=== PATIENT | male | born 1985 | race African-American/Black ===

== ENCOUNTER 2019-08-06 08:09 | Observation (INO) ==
[2019-08-06] MEDS ORDERED: ASPIRIN PO ONE (08:21)
[2019-08-06] MEDS ORDERED: ZOFRAN IV ONE (08:34)
[2019-08-06 08:41] LABS: BASO# 0.03 X1000 (0.0-0.2); BASO% 0.3 % (0.0-0.8); EOS# 0.01 X1000 (0.0-0.7); EOS% 0.1 % (0.0-10.0); HEMATOCRIT 46.1 % (42.0-52.0); HEMOGLOBIN 15.4 g/dL (14.0-18.0); IMM GRAN# 0.03 X1000 (0.0-0.04); IMM GRAN% 0.3 % (0.0-0.5); LYMPH# 2.02 X1000 (1.2-3.4); LYMPH% 18.2 % (20.5-51.1); MCH 27.7 PG (27-31); MCHC 33.4 g/dL (33-37); MCV 82.9 FL (81-99); MONO# 0.54 X1000 (0.11-0.59); MONO% 4.9 % (1.7-9.3); MPV 9.9 FL (7.4-10.4); NEUT# 8.48 X1000 (1.4-6.5); NEUT% 76.2 % (42.2-75.2); PLT 404 X1000 (130-400); RBC 5.56 XMIL (4.7-6.1); RDW 13.8 % (11.5-14.5); WBC 11.11 X1000 (4.8-10.8)
--- NOTE | 2019-08-06 09:00 | Diag Imaging Result Doc PS360 ---
CHEST-2 VIEWS - 08/06/2019 INDICATION: sob COMPARISON: 10/03/2017 FINDINGS: Stable scarring at the left lateral costophrenic angle. The lungs are clear. Heart size is normal. No pneumothorax or pleural effusion. IMPRESSION: Negative exam. Electronically signed by Xander Smith 08/06/2019 8:57 AM
[2019-08-06 09:01] LABS: AGAP 18; ALBUMIN 4.5 g/dL (3.5-5.0); ALKALINE PHOSPHATASE 116 U/L (32-122); BUN 11 mg/dL (8-22); CALCIUM 9.9 mg/dL (8.8-10.2); CHLORIDE 97 mmol/L (98-107); CK PROFILE 111 U/L (24-204); COSMO 282; CREATININE 0.8 mg/dL (0.7-1.2); ESTIMATED GFR > 60; GLUCOSE 318 mg/dL (70-104); GOT 25 U/L (10-34); GPT 46 U/L (10-44); POTASSIUM 4.3 mmol/L (3.5-5.1); SODIUM 135 mmol/L (136-145); TCO2 20 mmol/L (25-35)
[2019-08-06 09:02] LABS: INR 0.98; PROTIME 13.5 Seconds (11.0-16.0)
[2019-08-06 09:03] LABS: PTT 26.2 Seconds (22.3-41.8)
[2019-08-06 09:04] LABS: URINE SOURCE CLEAN CATCH
[2019-08-06] MEDS ORDERED: APRESOLINE IV ONE (09:09)
[2019-08-06 09:16] LABS: BILIRUBIN URINE NEGATIVE (NEGATIVE); BLOOD URINE NEGATIVE (NEGATIVE); COLOR YELLOW; GLUCOSE URINE >1000 mg/dL (NEGATIVE); KETONE URINE 60 mg/dL (NEGATIVE); LEUKOCYTES URINE NEGATIVE (NEGATIVE); NITRITE URINE NEGATIVE (NEGATIVE); PROTEIN URINE TRACE mg/dL (NEGATIVE); SP GRAVITY URINE 1.032; TURBIDITY URINE CLEAR (CLEAR); UROBILINOGEN URINE NORMAL (NORMAL)
--- NOTE | 2019-08-06 09:16 | EKG Report ---
Test Performed on : 08/06/2019 08:26:26 AM Test Reason : sob Blood Pressure : / mmHG Vent. Rate : 097 BPM Atrial Rate : 097 BPM P-R Int : 160 ms QRS Dur : 082 ms QT Int : 344 ms P-R-T Axes : 037 070 007 degrees QTc Int : 436 ms Normal sinus rhythm. Normal ECG When compared with ECG of 27-JUL-2017 20:06, Nonspecific T wave abnormality no longer evident in Anterior leads Unconfirmed Result
[2019-08-06 09:17] LABS: UR EPITHELIAL CELLS <10 /HPF (<10); URINE BACTERIA NEGATIVE /HPF; URINE RBC <10 /HPF (<10); URINE WBC <10 /HPF (<10)
--- NOTE | 2019-08-06 09:26 | PROVIDER DOCUMENTATION ---
HPI-Abdominal Pain/GI Problem - General Chief Complaint: Abdominal Pain Stated Complaint: ABD PAIN Time Seen by Provider: 08/06/19 08:12 Source: patient Allergies/Adverse Reactions: Patient Allergies Allergy/AdvReac Type Severity Reaction Status Date / Time No Known Allergies Allergy Verified 07/27/17 17:42 Home Medications: Home Medication List Medication Instructions Recorded Confirmed Last Taken Type Metoprolol Dawson/Hydrochlorothiaz 1 each PO DAILY #30 tab.er.24h 04/11/17 05/30/17 Unknown Rx [Dutoprol 50-12.5 mg Tablet] Clonazepam [Klonopin] 1 mg PO HS #10 tab.rapdis 05/30/17 Unknown Rx Sulfamethoxazole/Tmp D.s. [Septra 1 ea PO BID #20 tab 06/15/17 Unknown Rx Ds] Promethazine [Phenergan] 25 mg PO Q6H PRN PRN #10 tab 07/27/17 Unknown Rx Acetaminophen [Tylenol] 650 mg PO Q6H PRN PRN tablet 10/05/17 Unknown Rx Losartan [Cozaar] 100 mg PO DAILY #30 tab 10/05/17 Unknown Rx Metformin [Glucophage] 500 mg PO BID #60 tab 10/05/17 Unknown Rx Metoclopramide [Reglan] 5 mg PO TID AC #90 tab 10/05/17 Unknown Rx Ondansetron Odt [Zofran Odt] 8 mg PO Q8H PRN PRN #45 tab 10/05/17 Unknown Rx Pantoprazole Sodium [Protonix] 40 mg PO DAILY #30 tablet.dr 10/05/17 Unknown Rx Sitagliptin [Januvia] 100 mg PO DAILY #30 tab 10/05/17 Unknown Rx Sulfamethoxazole/Trimethoprim 1 ea PO BID #20 tab 11/13/17 Unknown Rx [Bactrim Ds Tablet] - History of Present Illness-ABD Nature of Presenting Problems: 33 YOM with PMH of DM, gastroparesis, HTN presents with c/o generalized upper abdominal pain, n/v/d x 2 days. Denies Fever, chills, SOB, CP. He is diaphoretic on exam in NAD. Abdominal Pain Onset Location: reports: RUQ, LUQ Pain Radiation: reports: no radiation Quality of Pain: reports: aching, cramping, fullness Severity in ED: reports: moderate Onset/Duration: reports: 2 days ago Timing: reports: still present Activities at Onset: reports: none Exposure to sick contacts?: No Associated Symptoms: reports: diarrhea, nausea, vomiting Last BM: 24 hours ago Dark Stools Present?: reports: none noticed Rectal Bleeding: reports: none Rectal Pain: reports: none # of Vomiting Episodes: 6 Bruising or Bleeding Gums?: No Similar Symptoms Previously?: No Recently seen or treated by another doctor?: No Review of Systems - Adult - REVIEW OF SYSTEMS - ADULT Constitutional: reports: no symptoms reported. denies: see HPI, chills, fever, fatique, night sweats, weight gain, weight loss, other Eyes: reports: no symptoms reported. denies: see HPI, discharge, dry eyes, decreased vision, blurred vision, double vision, eye pain, redness, other Ears, Nose, Mouth & Throat: reports: no symptoms reported. denies: see HPI, ear discharge, ear pain, hearing loss, tinnitus, epistaxis, sinus problem, nose pain, loose teeth, mouth/dental pain, mouth swelling, hoarseness, throat pain, throat swelling, other Cardiovascular: reports: no symptoms reported. denies: see HPI, chest pain, edema, heart murmur, irregular heart rate, orthopnea, palpitations, poor circul ation, PND, syncope, other Respiratory: reports: no symptoms reported. denies: see HPI, chronic cough, cough, dyspnea on exertion, excessive sputum production, hemoptysis, pleurisy, shortness of breath, wheezing, other Gastrointestinal: reports: see HPI, abdominal pain, diarrhea, nausea, vomiting. denies: no symptoms reported, hematemesis, constipation, difficulty swallowing, frequent heartburn, poor appetite, rectal bleeding, other Genitourinary: reports: no symptoms reported. denies: see HPI, dysuria, discharge, frequency, flank pain, frequent UTI's, hematuria, hesitency, incontinence, urinary retention, urgency, other Musculoskeletal: reports: no symptoms reported. denies: see HPI, bone pain, back pain, frequent leg cramps, joint pain, joint swelling, muscle aches, muscle weakness, neck pain, other Integumentary: reports: no symptoms reported. denies: see HPI, hives, hair loss, itching, mole changes, nail changes, rash, skin sores/ulcer, skin thickening, other Neurological: reports: no symptoms reported. denies: see HPI, ataxia, dizziness/vertigo, headache/migraines, loss of balance, numbness, paresthesia, seizure, slurred speech, syncope, tremors, other Psychiatric: reports: no symptoms reported. denies: see HPI, anxiety, anti- depressant use, alcohol/drug dependence, depression, emotional problems, insomnia, panic attacks, suicidal thoughts, other Endocrine: reports: no symptoms reported. denies: see HPI, change in skin pigment, excessive sweating, goiter, cold intolerance, heat intolerance, increased hunger, increased thirst, polyuria, other Hematologic/Lymphatic: reports: no symptoms reported. denies: see HPI, blood clots, easy bruising, low blood count, lymphedema, prolonged bleeding, swollen lymph nodes, transfusions, other Allergic/Immunologic: reports: no symptoms reported. denies: see HPI, allergic reactions, allergic rhinitis, asthma, eczema, food allergy, frequent infections, hay fever, hives, positive PPD, urticaria, other Past History - Adult - PAST MEDICAL HISTORY-ADULT Review of Records: reports: Nursing Assessment Review, Social history reviewed & non-contributory. Major Childhood Illnesses: reports: denies history Cardiovascular: reports: HTN Respiratory: reports: pneumonia Gastrointestinal: reports: GERD, other (H pylori, gastroparesis, cyclical vomiting) Genitourinary: reports: other (decreased urination) Musculoskeletal: reports: denies history Neurological: reports: denies history Endocrine/Immune: reports: Diabetes - PRIOR SURGERIES/PROCEDURES Surgical/Procedure History: reports: none - IMMUNIZATION STATUS Childhood Immunizations: See Nurse Assessment Flu Vaccine: See Nurse Assessment - FAMILY HISTORY Family History: reviewed, not pertinent Physical Exam-General - PHYSICAL EXAM-ADULT Initial Vital Signs Reviewed: Yes - CONSTITUTIONAL General Appearance: alert, no apparent distress - EYES Eyes: PERRL/EOMI, pink conjunctivae - HEAD, EARS, NOSE, MOUTH & THROAT HENMT: normocephalic/atraumatic, moist mucous membranes, normal ENT inspection - NECK Neck: non-tender, full range of motion, supple - RESPIRATORY Respiratory: chest non-tender, no pleuratic chest pain, no respiratory distress, no accessory muscle use, wheezing - CARDIOVASCULAR Cardiovascular: normal peripheral pulses, regular rate, rhythm, no edema, no gallop - GASTROINTESTINAL (ABDOMEN) Abdominal Exam: soft, tenderness, other (obese) - LYMPHATIC Lymphatic: no adenopathy - MUSCULOSKELETAL Back Exam: normal inspection, no CVA tenderness, no vertebral tenderness Extremity: normal range of motion, non-tender, normal gait Peripheral Pulses: radial (R): 2+, radial (L): 2+ - SKIN Integumentary: normal color, normal turgor, warm/dry - NEUROLOGIC Neurologic: grossly normal - PSYCHIATRIC Psych/Mental Status: normal mood/affect, oriented x 3 Progress - PLAN OF CARE/RESULTS Progress/Plan/Lab Results: Vital Signs - 8 hr 08/06/19 08:13 08/06/19 08:36 Temperature 98 F Pulse Rate 89 104 H Respiratory Rate 22 25 H Blood Pressure 188/119 160/103 O2 Sat by Pulse Oximetry 98 95 Laboratory Results - last 24 hr 08/06/19 08/06/19 08/06/19 08:30 08:30 08:30 WBC RBC Hgb Hct MCV MCH MCHC RDW Std Deviation Plt Count MPV Immature Gran % (Auto) Neut % (Auto) Lymph % (Auto) [place] % (Auto) Eos % (Auto) Baso % (Auto) Immature Gran # (Auto) Neut # (Auto) Lymph # (Auto) Crawford # (Auto) Eos # (Auto) Baso # (Auto) PT INR PTT (Actin FS) Sodium 135 L Potassium 4.3 Chloride 97 L Carbon Dioxide 20 L Anion Gap 18 BUN 11 Creatinine 0.8 Estimated GFR/1.73 m2 > 60 BUN/Creatinine Ratio 14 Glucose 318 H POC Glucose Calculated Osmolality 282 Calcium 9.9 Total Bilirubin 0.50 AST 25 ALT 46 H Alkaline Phosphatase 116 Creatine Kinase 111 Troponin T High Sens < 6 Uck-F-Pvrxvjbvmov Pept 14 Total Protein 8.0 Albumin 4.5 Globulin 4.0 Albumin/Globulin Ratio 1.0 Plasma Lactate Urine Source Urine Color Urine Turbidity Urine pH Ur Specific [place] Urine Protein Ur Glucose (Stick) Ur Ketones (Stick) Urine Blood Urine Nitrite Urine Bilirubin Urobilinogen Dipstick Urine Leukocytes Urine WBC (Auto) Urine RBC (Auto) U Epithel Cells (Auto) Urine Bacteria (Auto) 08/06/19 08/06/19 08/06/19 08:30 08:30 08:30 WBC 11.11 H RBC 5.56 Hgb 15.4 Hct 46.1 MCV 82.9 MCH 27.7 MCHC 33.4 RDW Std Deviation 13.8 Plt Count 404 H MPV 9.9 Immature Gran % (Auto) 0.3 Neut % (Auto) 76.2 H Lymph % (Auto) 18.2 L Crawford % (Auto) 4.9 Eos % (Auto) 0.1 Baso % (Auto) 0.3 Immature Gran # (Auto) 0.03 Neut # (Auto) 8.48 H Lymph # (Auto) 2.02 Crawford # (Auto) 0.54 Eos # (Auto) 0.01 Baso # (Auto) 0.03 PT 13.5 INR 0.98 PTT (Actin FS) 26.2 Sodium Potassium Chloride Carbon Dioxide Anion Gap BUN Creatinine Estimated GFR/1.73 m2 BUN/Creatinine Ratio Glucose POC Glucose Calculated Osmolality Calcium Total Bilirubin AST ALT Alkaline Phosphatase Creatine Kinase Troponin T High Sens Vwz-F-Logfrfaeszk Pept Total Protein Albumin Globulin Albumin/Globulin Ratio Plasma Lactate 2.1 Urine Source Urine Color Urine Turbidity Urine pH Ur Specific [place] Urine Protein Ur Glucose (Stick) Ur Ketones (Stick) Urine Blood Urine Nitrite Urine Bilirubin Urobilinogen Dipstick Urine Leukocytes Urine WBC (Auto) Urine RBC (Auto) U Epithel Cells (Auto) Urine Bacteria (Auto) 08/06/19 08/06/19 08:39 09:00 WBC RBC Hgb Hct MCV MCH MCHC RDW Std Deviation Plt Count MPV Immature Gran % (Auto) Neut % (Auto) Lymph % (Auto) Crawford % (Auto) Eos % (Auto) Baso % (Auto) Immature Gran # (Auto) Neut # (Auto) Lymph # (Auto) Crawford # (Auto) Eos # (Auto) Baso # (Auto) PT INR PTT (Actin FS) Sodium Potassium Chloride Carbon Dioxide Anion Gap BUN Creatinine Estimated GFR/1.73 m2 BUN/Creatinine Ratio Glucose POC Glucose 259 H Calculated Osmolality Calcium Total Bilirubin AST ALT Alkaline Phosphatase Creatine Kinase Troponin T High Sens Uch-V-Sruxankkonr Pept Total Protein Albumin Globulin Albumin/Globulin Ratio Plasma Lactate Urine Source CLEAN CATCH Urine Color YELLOW Urine Turbidity CLEAR Urine pH 7.0 Ur Specific [place]on 1.032 Urine Protein TRACE A Ur Glucose (Stick) >1000 A Ur Ketones (Stick) 60 A Urine Blood NEGATIVE Urine Nitrite NEGATIVE Urine Bilirubin NEGATIVE Urobilinogen Dipstick NORMAL Urine Leukocytes NEGATIVE Urine WBC (Auto) <10 Urine RBC (Auto) <10 U Epithel Cells (Auto) <10 Urine Bacteria (Auto) NEGATIVE Orders Category Date Time Status Cardiac Monitoring DIRECTED Care 08/06/19 08:21 Active Notify MD of + Sepsis Screen NOW Care 08/06/19 08:38 Active Oxygen Therapy- ED Nursing DIRECTED Care 08/06/19 08:21 Active Saline Loc NOW Care 08/06/19 08:21 Active CHEST-2 VIEWS [RAD] Stat Exams 08/06/19 08:[address] ABD/PELVIS W/IV CONT ONLY [CT] Stat Exams 08/06/19 09:01 Ordered BLOOD CULTURE [BLDCUL] Stat Lab 08/06/19 08:41 Ordered CBC WITH ELECTRONIC DIFF [HEME] Stat Lab 08/06/19 08:30 Completed CK PROFILE [SP CHEM] Stat Lab 08/06/19 08:30 Completed COMPREHENSIVE METABOLIC PANEL [CHEM] Stat Lab 08/06/19 08:[address] Stat Lab 08/06/19 09:08 Received LACTATE, PLASMA [CHEM] Lab 08/06/19 08:30 Completed LACTATE, PLASMA [CHEM] Lab 08/06/19 11:45 Uncollected LACTATE, PLASMA [CHEM] Lab 08/06/19 14:45 Uncollected PRO B-NATRIURETIC PEPTIDE Stat Lab 08/06/19 08:30 Completed PROTIME WITH INR [COAG] Stat Lab 08/06/19 08:30 Completed PTT [COAG] Stat Lab 08/06/19 08:30 Completed TROPONIN T HIGH SENSITIVITY Stat Lab 08/06/19 08:30 Completed URINALYSIS W/POSS RFLX CULT [URINALYSIS] Stat Lab 08/06/19 09:00 Completed Aspirin Med 08/06/19 08:21 Discontinued 325 mg PO NOW ONE Hydralazine [Apresoline] Med 08/06/19 09:09 Discontinued 5 mg IV NOW ONE Ondansetron [Zofran] Med 08/06/19 08:34 Discontinued 4 mg IV NOW ONE CP/SOB/Palp >45 yrs of Age Stat Oth 08/06/19 08:21 Ordered EKG [EKG] Stat Ther 08/06/19 08:21 Draft EKG [EKG] Stat Ther 08/06/19 09:02 Ordered Result Diagrams: 08/06/19 08:30 08/06/19 08:30 - REASSESSMENT Reassessment #1 Time Reassessed: 10:00 Status: improving (vomiting resolved, still diaphoretic) - EKG 1 Time of EKG reading by physician:: 08:27 EKG Read and Signed by:: Thom Vaughn EKG Interpretation (*Must complete 3 of following elements*): Normal Rate: 97 Rhythm: NSR [place]: normal QRS: normal PA Interval: normal ST Wave: normal - CT/MRI 1 CT Study: Abdomen, Pelvis Impression: See EMR Report (EXAM: CT ABD/PELVIS W/IV CONT ONLY HISTORY: ABDOMINAL PAIN, N.V, ELEVATED WBC, TENDER TECHNIQUE: CT abdomen and pelvis with intravenous contrast COMPARISON: 10/12/2015 FINDINGS: There is a 2.5 x 3.5 cm rounded parenchymal density in the left lower lobe. Although the shape is somewhat different, it was present on the prior exam. The width is less on the current study although the depth is slightly prominent. There are calcifications within this area. No calcified gallstones or adjacent inflammation. There is fatty infiltration of the liver. Normal spleen, pancreas, adrenal glands, and kidneys. No hydronephrosis. Normal aorta. No bowel obstruction. No inflammation about the cecum. The appendix is not definitely identified. No abscess. No ascites. Normal prostate. The urinary bladder is only slightly distended. IMPRESSION: 1.Likely scarring in the left lower lobe 2.Fatty infiltration of the liver This exam was performed using automated exposure control, adjustment of mA or kV according to patient size, and/or use of iterative reconstruction technique. Electronically signed by Yannick Llamas 08/06/2019 9:36 AM 08/06/19 0936 Interpreting Physician: Yannick Llamas MD Dictated Date/Time: 08/06/1932 cc: Luann Yanez; Pepito Kelly MD) - CONSULTS/PCP/HOSPITALIST Notification #1 *Consult/PCP/Hospitalist*: Dr. Justin Time Discussed: 10:10 Consult Disposition: Admit Departure - Departure Date of Disposition Decision: 08/06/19 Time of Disposition Decision: 10:10 DIAGNOSIS: Gastroparesis, Nausea and vomiting Disposition: ADMITTED INPATIENT 09 Certified Medical Emergency: Emergent Condition: Stable Referrals and Follow-Ups: Pepito Kelly MD [Primary Care Provider] - - Critical Care Note This patient required my direct & personal management of CC.: No Attestation - Physician/ LUIS DANIEL Attestation Patient care was provided by Advanced Practice Provider:: Yes Advanced Practice Provider:: Luann Yanez Advanced Practice Provider documentation review:: The Mid-level provider documentation, treatment plan and medical decision making was reviewed by the physician who agrees with all treatment and medical decision making by the MLP. The physician spent face to face time with patient:: No Advanced Practice Provider documentation review:: Supervising physician onsite and consulted in the evaluation and care of this patient. The physician did not have a face to face encounter with the patient.
--- NOTE | 2019-08-06 09:38 | Diag Imaging Result Doc PS360 ---
EXAM: CT ABD/PELVIS W/IV CONT ONLY HISTORY: ABDOMINAL PAIN, N.V, ELEVATED WBC, TENDER TECHNIQUE: CT abdomen and pelvis with intravenous contrast COMPARISON: 10/12/2015 FINDINGS: There is a 2.5 x 3.5 cm rounded parenchymal density in the left lower lobe. Although the shape is somewhat different, it was present on the prior exam. The width is less on the current study although the depth is slightly prominent. There are calcifications within this area. No calcified gallstones or adjacent inflammation. There is fatty infiltration of the liver. Normal spleen, pancreas, adrenal glands, and kidneys. No hydronephrosis. Normal aorta. No bowel obstruction. No inflammation about the cecum. The appendix is not definitely identified. No abscess. No ascites. Normal prostate. The urinary bladder is only slightly distended. IMPRESSION: 1.Likely scarring in the left lower lobe 2.Fatty infiltration of the liver This exam was performed using automated exposure control, adjustment of mA or kV according to patient size, and/or use of iterative reconstruction technique. Electronically signed by Yannick Llamas 08/06/2019 9:36 AM
[2019-08-06] MEDS ORDERED: NS 1,000 ML IV ONE (09:43)
[2019-08-06] MEDS ORDERED: REGLAN IV ONE (09:45)
[2019-08-06 09:51] LABS: INFLUENZA A NEGATIVE (NEGATIVE); INFLUENZA B NEGATIVE (NEGATIVE)
[2019-08-06 10:35] LABS: HEMOGLOBIN A1C 9.8 % (4.8-6.0)
[2019-08-06] MEDS ORDERED: APRESOLINE IV PRN ×2 (11:28→13:23)
[2019-08-06] MEDS: NS 1,000 ML IV SCH ×2 (11:28→23:17)
[2019-08-06] MEDS ORDERED: ZOFRAN IV PRN (11:28)
[2019-08-06] MEDS: REGLAN IV SCH ×2 (11:53→16:59)
[2019-08-06] MEDS ORDERED: CATAPRES PO ONE (12:16)
--- NOTE | 2019-08-06 12:19 | HISTORY AND PHYSICAL ---
PRIMARY CARE PROVIDER: Dr. Pepito Kelly. CHIEF COMPLAINT: Nausea and vomiting, weakness. HISTORY OF PRESENT ILLNESS: Mr. Chow is a morbidly obese gentleman, who carries a past medical history of diabetic gastroparesis, diabetes mellitus, hypertension, medical noncompliance, morbid obesity with a body mass index of 46, who reported to the ED with gastroparesis, nausea, vomiting, and weakness that started last Saturday. He is anxious appearing and wanting to take a hot shower in the ER. He reported smoking 2 blunts a day. He is being admitted for combination of diabetic and marijuana-induced gastroparesis, as well as accelerated hypertension. REVIEW OF SYSTEMS: Completely negative, except for those mentioned in HPI. There is no chest pain, no shortness of breath. No dysuria, frequency, or urgency. No polydipsia. Denies any constipation, diarrhea, bright red or dark tarry stools. PAST MEDICAL HISTORY: Per HPI. SOCIAL HISTORY: He quit smoking tobacco. He does not use alcohol, but he does smoke 2 blunts a day. FAMILY HISTORY: Positive for diabetes. MEDICATIONS: Home medications are being compiled. PHYSICAL EXAMINATION: VITAL SIGNS: Temperature is 98 degrees, heart rate 85, respirations 20, blood pressure 148/107, O2 is 94% on room air. GENERAL: Mr. Chow is morbidly obese, 33-year-old male, who appears anxious in the bed, requesting to go to his room to take a hot shower in no acute distress. HEENT: Atraumatic, normocephalic. PERRL. NECK: Supple. Trachea midline. CARDIOVASCULAR: S1, S2 appreciated. No murmurs, gallops, rubs noted. RESPIRATORY: Lung sounds clear bilaterally. GI: Soft, nontender, nondistended. Positive bowel sounds 4 quads. EXTREMITIES: Lower extremities negative for edema. NEUROLOGIC: No focal deficits noted. DIAGNOSTIC DATA: 1. Abdomen and pelvis CT: Likely scarring in the left lower lobe, fatty infiltration of the liver. 2. Chest x-ray: Negative exam. LABORATORY DATA: White count 11, hemoglobin and hematocrit 15 and 46, platelet count is 404. Sodium 135, potassium 4.3, anion gap is 18, blood glucose is 318. A1c is 9.8. ALT is 46. Urinalysis is negative. Flu A and B negative. ASSESSMENT AND PLAN: 1. Gastroparesis, combination of diabetic and marijuana-induced hyperemesis. We will continue with antiemetics and Reglan. Do a clear liquid diet as tolerated. Diabetic. He reports he is no longer taking his home Reglan. Continue with intravenous Reglan, intravenous Zofran. Did educate about the importance of controlling his diabetes, as well as cessation of marijuana. 2. Accelerated hypertension. We will continue with Apresoline as needed. 3. Uncontrolled diabetes mellitus. We will place him on pattern blood sugars with sliding scale. 4. Known medical noncompliance. Continue daily education on being compliant. 5. Morbid obesity with a body mass index of 46. Need continued education on diet and exercise. Dictated by KIM Perez for Finn Nolasco MD cc: MD Pepito Pereira MD
[2019-08-06] MEDS: HUMALOG (PARKWAY) SUBQ SCH ×2 (16:59→23:17)
[2019-08-07] MEDS: REGLAN IV SCH ×3 (00:12→11:44)
--- NOTE | 2019-08-07 04:13 | HISTORY AND PHYSICAL ---
ADDENDUM: Patient seen and examined by myself. Full note dictated and discussed with nurse practitioner. Patient presented to the hospital with nausea, vomiting, and abdominal pain. He does have a history of gastroparesis. We attempted to educate patient on the importance of controlling his diabetes as well as cessation of marijuana. Patient is adamant that he does not believe that marijuana is causing his hyperemesis, although [*] which certainly goes along with cannabis hyperemesis. Regardless, we admitted him to the hospital with fluids, Reglan, control his blood sugars, and will follow. cc: Finn Nolasco MD
[2019-08-07 05:17] VITALS: BP 141/82
[2019-08-07 05:23] LABS: BASO# 0.02 X1000 (0.0-0.2); BASO% 0.2 % (0.0-0.8); EOS# 0.01 X1000 (0.0-0.7); EOS% 0.1 % (0.0-10.0); HEMATOCRIT 41.6 % (42.0-52.0); HEMOGLOBIN 13.7 g/dL (14.0-18.0); IMM GRAN# 0.03 X1000 (0.0-0.04); IMM GRAN% 0.2 % (0.0-0.5); LYMPH# 1.67 X1000 (1.2-3.4); LYMPH% 12.8 % (20.5-51.1); MCHC 32.9 g/dL (33-37); MCV 84.9 FL (81-99); MONO# 0.86 X1000 (0.11-0.59); MONO% 6.6 % (1.7-9.3); MPV 9.7 FL (7.4-10.4); NEUT% 80.1 % (42.2-75.2); PLT 359 X1000 (130-400); RDW 14.1 % (11.5-14.5); WBC 13.09 X1000 (4.8-10.8)
[2019-08-07] MEDS: NS 1,000 ML IV SCH ×2 (05:43→12:49)
[2019-08-07 06:06] LABS: AGAP 15; ALKALINE PHOSPHATASE 96 U/L (32-122); BUN 10 mg/dL (8-22); CHLORIDE 97 mmol/L (98-107); COSMO 279; CREATININE 0.8 mg/dL (0.7-1.2); ESTIMATED GFR > 60; GLUCOSE 277 mg/dL (70-104); GOT 16 U/L (10-34); GPT 33 U/L (10-44); MAGNESIUM 1.7 mg/dL (1.5-2.7); POTASSIUM 3.9 mmol/L (3.5-5.1); SODIUM 135 mmol/L (136-145); TCO2 23 mmol/L (25-35); TOTAL PROTEIN 7.7 g/dL (6.3-8.3)
[2019-08-07] MEDS: HUMALOG (PARKWAY) SUBQ SCH ×2 (06:31→11:44)
[2019-08-07] MEDS ORDERED: GLUCOPHAGE PO SCH (09:00)
[2019-08-07] MEDS ORDERED: COZAAR PO SCH (09:00)
--- NOTE | 2019-08-08 04:46 | DISCHARGE SUMMARY ---
ADMISSION DATE: 08/06/2019 DISCHARGE DATE: 08/07/2019 DISCHARGE DIAGNOSIS: 1. Gastroparesis, likely more related to marijuana hyperemesis as it resolved very quickly and improved with Reglan as well as hot showers. 2. Diabetes with poor control. 3. Obesity. 4. Hypertension. CONSULTATIONS: None. PROCEDURES: None. BRIEF HOSPITAL COURSE: The patient is a 33-year-old male who presented to the hospital. Placed on Reglan and IV fluids. Thankfully, he improved. On discharge, he is eating a regular diet. He is in no distress and therefore he will be discharged home. DISPOSITION: Again, discussed with patient the importance of diabetes control as well as importance of avoiding marijuana. No changes were made in his home medications, diet, or activity. TIME SPENT: Greater than 30 minutes was spent in total care. cc: Finn Nolasco MD
== END 2019-08-07 13:56 | disposition home or self-care (01) ==
LOC: P.ED 08:09 → INTOOBSV 08:10 → P.MEDSURG 08:10
PROVIDERS: ATTEND Family Medicine